=== PATIENT | male | born 1935 | race Caucasian/White ===

== ENCOUNTER 2020-03-01 09:17 | Day surgery (SDC) | payer MEDICARE, BC ==
--- NOTE | 2020-03-01 09:45 | HP ---
DATE OF SURGERY: 03/01/2020 HISTORY OF PRESENT ILLNESS: The patient is an 84 year old had some rectal bleeding (three episodes) over the past month or so. First episode bad and the last was a little darker. Last colonoscopy several years ago had a polyp 15 to 18 years ago. No pain. No change in bowel movements. Family history negative for colon cancer. History of rectal bleeding. History of polyps in the past. He is in need of colonoscopy for evaluation. PAST MEDICAL HISTORY: Prostate issues in the past. He has had heart disease in the past. He had stents. He had cataracts in the past. Lyme disease in the past. PAST SURGICAL HISTORY: Coronary stent. Prostate surgery. Cataract surgery. Skin cancer removed. Bladder sling. Colonoscopy multiple years ago. MEDICATIONS: Valsartan, metoprolol, pantoprazole, Allopurinol, amlodipine, Pravastatin, clopidogrel, baby aspirin, Montelukast, Cetirizine. He takes occasional Nasacort, L-lysine, desonide, metolazone, nasal spray in the past. ALLERGIES: SULFA. AMOXICILLIN. FAMILY HISTORY: Negative for colon cancer. SOCIAL HISTORY: Denied smoking. REVIEW OF SYSTEMS: Fourteen systems reviewed. No chest pain or palpitations. 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 Other systems negative or noncontributory as above and per preadmission questionnaire. History of Lyme disease as well as heart disease in the past. PHYSICAL EXAMINATION: GENERAL: No acute distress. HEENT: Sclerae nonicteric. NECK: No JVD. CHEST: Equal excursion, nonlabored breathing. CVS: Regular rate and rhythm. ABDOMEN: Soft. No peritoneal signs. EXTREMITIES: No significant edema. NEURO: Alert, oriented, moving extremities symmetrically. No gross motor deficits noted. RECTAL: Deferred timed to endoscopy exam. PSYCH: Appropriate mood and affect. IMPRESSION: History of rectal bleeding, past history of polyps years ago. He is in need of follow up colonoscopy under MAC anesthesia. Risk of bleeding or infection, risk of bowel injury or perforation possibly requiring open procedure, risk of missed or nondiagnosis or incomplete exam possibly requiring barium enema, other studies or procedures, general risk of anesthesia or sedation, risk of bowel prep but not limited to, consent was obtained, will proceed with outpatient colonoscopy under MAC anesthesia.
[2020-03-01] MEDS ORDERED: Lactated Ringers 1,000 ML IV SCH (10:00)
[2020-03-01] MEDS ORDERED: Lactated Ringers 1,000 ML IV ONE (10:01)
[2020-03-01] MEDS ORDERED: DIPRIVAN 200 MG/20 ML IV ONE (11:43)
[2020-03-01] MEDS ORDERED: Ketamine HCl 50 MG/ML ONE (11:43)
[2020-03-01 13:02] VITALS: O2SAT 98
[2020-03-01 13:03] VITALS: BP 134/74; PULSE 72
--- NOTE | 2020-03-02 08:42 | OP ---
SURGERY DATE/TIME: 03/01/2020 1147 PREOPERATIVE DIAGNOSIS: History of rectal bleeding, prior history of polyp, last colonoscopy 15 to 18 years ago. POSTOPERATIVE DIAGNOSES: 1) Small early polyps versus hyperplastic lesions sigmoid colon and rectum. 2) Moderate to severe diverticulosis. 3) Small internal hemorrhoids. 4) Fair bowel prep. PROCEDURES: 1) Colonoscopy to cecum. 2) Hot biopsy removal of small early polyp versus hyperplastic lesion sigmoid colon x3, rectum x2 removal with hot biopsy forceps. SURGEON: Dr. Leobardo Snow. ANESTHESIA: MAC. ESTIMATED BLOOD LOSS: Minimal. INDICATIONS: As noted above. Risks and benefits explained in detail but not limited to and consent obtained. DESCRIPTION OF PROCEDURE AND FINDINGS: The patient is taken to the operating room. MAC anesthesia introduced. After official time out and no disagreement with planned procedure, digital rectal exam did not reveal any rectal masses. He did have some internal hemorrhoids. Video colonoscope inserted and passed up through the slightly tortuous sigmoid, descending, transverse and ascending colon. With external pressure the scope was able to be passed to cecum. Appendiceal orifice and valve well visualized and photo documented. Prep overall was fair. There was a little bit of liquidy semi-solid stool just slightly limiting the exam for small lesion this was suction irrigated as clear as possible. Slow careful withdrawal of the scope over the next 9 minutes. He had moderate to severe diverticulosis. There was some scattered throughout the colon but was most severe the left half of the colon. Multiple large-mouth diverticula. The scope is slowly and carefully withdrawn. There were three small early polyps versus hyperplastic lesions in the sigmoid colon removed with hot biopsy forceps with brief bursts of cautery. Good hemostasis noted. He is going to need to go back on his blood thinner. There were two small early polyps versus hyperplastic lesions in the rectum removed with hot biopsy forceps with brief bursts of cautery. Good hemostasis noted. There was scant ooze on one side but appeared to have good hemostasis at the end of the procedure. He had some small internal hemorrhoids. There were no large polyps, masses or lesions. Question whether his internal hemorrhoids are not actively bleeding currently or whether the source of his occasional bleeding being on his blood thinners. It was felt that they did not warrant any intervention at this time. Good hemostasis noted. The scope is withdrawn. The patient tolerated the procedure well. There were no immediate complications. Findings discussed with the family out in the waiting area. ASA Class III. Withdrawal time 9 minutes. Prep fair. Appendiceal orifice and ileocecal valve photo documented.
== END 2020-03-01 13:00 | disposition home or self-care (01) ==
LOC: SDC 09:17
PROVIDERS: ATTEND Surgery
DX: Z09 Encounter for follow-up examination after completed treatment for conditions other than malignant neoplasm (principal); K62.5 Hemorrhage of anus and rectum; Z86.010 Personal history of colon polyps; K63.5 Polyp of colon; K64.8 Other hemorrhoids; K57.30 Diverticulosis of large intestine without perforation or abscess without bleeding; Z79.899 Other long term (current) drug therapy; Z86.79 Personal history of other diseases of the circulatory system
CPT/HCPCS: 93005; 99100; J2704